=== PATIENT | female | born 1980 | race Caucasian/White ===

== ENCOUNTER → 2022-10-10 10:19 | Outpatient (BNVA) | payer OTHER, SELFPAY | PROVIDERS: PCP Physician Assistant; Visit Provider Student in an Organized Health Care Education/Training Program | DX: Z13.89 Encounter for screening for other disorder (principal) ==

== ENCOUNTER 2022-10-10 11:41 | Outpatient (REF) | payer OTHER, SELFPAY ==
[2022-10-10 12:48] LABS: C Reactive Protein 0.22 mg/dL (< or = 0.50); Rheumatoid Factor < 13.0 IU/mL (<15.0)
[2022-10-10 12:56] LABS: Erythrocyte Sedimentation Rate 30 MM/HR (0-20)
[2022-10-10 13:05] LABS: Appearance Urine Clear; Color Urine Yellow; Glucose Urine UA Negative (Negative); Leukocyte Esterase Urine Negative (Negative); Nitrite Urine Negative (Negative); PH 6.5 (5.0-9.0); Specific Gravity - Urine 1.025 (1.005-1.025); Urine Blood Negative (Negative); Urine Ketones Negative (Negative); Urine Protein Negative (Neg-Trace)
[2022-10-10 13:08] LABS: Bacteria Urine None Seen (None Seen); Hyaline Casts Urine 0-2 /LPF (0-2); RBC Urine 0-2 /HPF (0-2); Squamous Epithelial Cell Urine 0-2 /HPF (0-2); WBC Urine 0-5 /HPF (0-5)
[2022-10-10 13:42] LABS: Creatinine Urine 229.79 mg/dL; Protein/Creatinine Ratio, Ur 0.04 (<0.2); Total Protein Urine Random 10 mg/dL (<12)
[2022-10-11 07:46] LABS: HBS Num1 2.18 mIU/mL (0-7.99); HBc Num1 0.15 S/CO (0.00-0.79); HBsAGNum1 0.25 S/CO (0.00-0.99); Hepatitis A Antibody IgM 0.17 Index (0-0.79); Hepatitis B Core Antibody Nonreactive (Nonreactive); Hepatitis B Surface Antigen Negative (Negative); ~HepC Num1 0.09 S/CO (0.00-0.79); ~Hepatitis A Antibody IgM Nonreactive (Nonreactive); ~Hepatitis B Surface Antibody NONREACTIVE (Nonreactive); ~Hepatitis C Antibody Nonreactive (Nonreactive)
[2022-10-11 17:03] LABS: Complement C3 148 mg/dL (83-193); Thyroglobulin Antibodies <1 IU/mL (< or = 1); Thyroid Peroxidase Antibodies 1 IU/mL (<9)
[2022-10-11 22:33] LABS: Anti DNA DS Antibody 1 IU/mL; Antibody to SS-A Antigen <1.0 NEG AI (<1.0 NEG); Antibody to SS-B Antigen <1.0 NEG AI (<1.0 NEG); SM/Ribonucleoprotein Ab <1.0 NEG AI (<1.0 NEG); Smith Protein <1.0 NEG AI (<1.0 NEG)
[2022-10-11 22:43] LABS: Cardiolipin IgG Ab <2.0 GPL-U/mL
[2022-10-12 21:08] LABS: IgA 248 mg/dL (47-310); IgG 1239 mg/dL (600-1640); IgM 133 mg/dL (50-300)
[2022-10-13 17:24] LABS: Prot Elec - Albumin 4.3 g/dL (3.8-4.8); Prot Elec - Alpha1 0.3 g/dL (0.2-0.3); Prot Elec - Alpha2 0.9 g/dL (0.5-0.9); Prot Elec - Beta 1 0.5 g/dL (0.4-0.6); Prot Elec - Beta 2 0.4 g/dL (0.2-0.5); Prot Elec - Gamma 1.2 g/dL (0.8-1.7); Prot Elec - Total Protein 7.6 g/dL (6.1-8.1)
[2022-10-14 15:05] LABS: DNAds, Crithidia Antibody Negative (Negative)
[2022-10-16 02:10] LABS: PTT (LAC) Screen 32 sec (<=40)
[2022-10-17 14:18] LABS: Beta-2 Glycoprotein IgA <2.0 U/mL (<20.0); Beta-2 Glycoprotein IgG <2.0 U/mL (<20.0); Beta-2 Glycoprotein IgM <2.0 U/mL (<20.0); Cardiolipin IgM Ab <2.0 MPL-U/mL; Cyclic Citrullinated Peptide <16 UNITS
== END 2022-10-10 11:42 | disposition home or self-care (01) ==
LOC: HO.10HDL 11:41
PROVIDERS: Visit Provider Student in an Organized Health Care Education/Training Program
DX: M32.9 Systemic lupus erythematosus, unspecified (principal); D68.61 Antiphospholipid syndrome; M25.541 Pain in joints of right hand; E03.9 Hypothyroidism, unspecified; Z11.59 Encounter for screening for other viral diseases
CPT/HCPCS: 36415; 81001; 82550; 82784; 84156; 84165; 85597; 85613; 85652; 85730; 86140; 86146; 86147; 86160; 86200; 86225; 86235; 86255; 86334; 86376; 86431; 86704; 86706; 86709; 86800; 86803; 87340

== ENCOUNTER → 2022-10-26 13:47 | Outpatient (BNVA) | payer OTHER, SELFPAY | PROVIDERS: PCP Physician Assistant; Visit Provider Student in an Organized Health Care Education/Training Program | DX: Z13.89 Encounter for screening for other disorder (principal) ==

== ENCOUNTER 2023-05-03 15:12 | Outpatient (AMB) | payer OTHER, SELFPAY ==
[2023-05-03 15:20] VITALS: BP 126/72; PULSE 83; TEMP 36.7; O2SAT 97; BMI 41.5
--- NOTE | 2023-05-03 15:20 | A.OFFVIS_ITS ---
Intake Vital Signs 05/03/23 15:20 Height 5 ft 4 in Weight 241 lb 10.026 oz BMI 41.5 BP 126/72 Blood Pressure Location Rt brachial Position Sitting Pulse 83 Pulse Source Pulse Oximeter Temp 98.1 F Temp Source Skin Pulse Oximetry (%) 97 Intake Visit Reasons: RA Allergies acetaminophen [From Percocet] Adverse Reaction (Intermediate, Verified 10/26/22 13:55) Nausea and Vomiting oxycodone [From Percocet] Adverse Reaction (Intermediate, Verified 10/26/22 13:55) Nausea and Vomiting Medication List - Last Reconciled 05/03/23 by Ciro Aguirre MD alprazolam 1 mg PO BID PRN cetirizine (Allergy Relief (cetirizine)) 10 mg PO DAILY PRN hydroxychloroquine 200 mg PO BID omeprazole 20 mg PO DAILY HPI HPI Comments History of Present Illness Details 43-year-old female with mild SLE returns for follow-up. Patient did not start hydroxychloroquine has discussed last visit for fear of side effects. Worried about eye side effects. Patient states that over the last few years she has been getting episodes of fatigue, fevers up to 100.6, rashes on her cheeks as well as pain in her fingers. Initial history: This is a 42-year-old female with a past medical history of anxiety, rosacea who is referred by Dermatology for positive KERA. Patient was evaluated by Dr. Meño hackett for diffuse fatigue and soreness 7-8 years ago. No signs of underlying autoimmune rheumatic disease was found. She had a positive KERA 1-320 homogeneous. Patient stated that for many years she has had fatigue. She gets significantly fatigued after doing some light activity. She has diffuse body pain. Over the last few months she has had recurrent rashes affecting her cheeks, eyelids, fingers. The rash could last a few hours up to a few days. Usually resolve spontaneously. Also over the last 2 years she has noticed progressive hair loss. She also mentions intermittent puffiness of her fingers associated with stiffness. She denies any blood or frothy urine. No history suggestive of Raynaud's. There is no history of DVT/PE. He was evaluated by Dermatology and prescribed show nidus old cream and topical steroids without significant relief. 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 Review of Systems Const Reports fatigue, Reports fever(s), Reports headache(s) and Reports weakness ENT Details: mouth ulcers Reports headache(s) Card Reports no additional complaints Denies hematuria Musc Reports arthralgias Skin/Breast Reports pruritus, Reports erythema, Reports photosensitivity and Reports rash Neuro Reports headache(s) and Reports weakness Endo Reports fatigue Physical Exam Vital Signs: Last Vital Signs Temp 98.1 F 05/03/23 15:20 Pulse 83 05/03/23 15:20 BP 126/72 05/03/23 15:20 Pulse Ox 97 05/03/23 15:20 BMI result Body Mass Index 41.5 Const General: cooperative and healthy appearing Nutritional Appearance: obese morbidly obese Orientation/consciousness: patient oriented x3 Limitations: no limitations HEENT Head: Yes normocephalic and Yes atraumatic Resp Effort & Inspection: normal respiratory effort and able to speak in complete sentences Neuro General: patient oriented x3 Extrem Other: Few fibromyalgia tender points on her upper chest. Tenderness in between her MCPs and PIPs bilaterally No active synovitis otherwise Normal nailfold capillaroscopy Results Reviewed Results Reviewed: Lab:CPK (Order Date - 09/28/2014) (Collection Date - 09/28/2014) ?Result: Normal ?CPK 69 26-140 - U/L Lab:SMOOTH MUSCLE ANTIBODIES (Order Date - 09/28/2014) (Collection Date - 09/28/2014) ?SMOOTH MUSCLE ANTIBODIES <20 <20 - U Lab:CRP (Order Date - 09/28/2014) (Collection Date - 09/28/2014) ?Result: Normal ?CRP < 0.30 < OR = 0.50 - MG/DL Lab:THYROGLOBULIN AB, SERUM (Order Date 09/28/2014) (Collection Date 09/28/2014) ?THYROGLOBULIN AB, SERUM <1 <=1 - IU/mL Lab:SED RATE (ESR) (Order 09/28/2014) (Collection Date 09/28/2014) ?Result: Normal ?SED RATE 13 0-20 - MM/HR Lab:THYROID PEROXIDASE AB (TPO) (Order 09/28/2014) (Collection Date 09/28/2014) ?THYROID PEROXIDASE AB 2 <9 - IU/mL Lab:LYME IGG & IGM (Order 09/28/2014) (Collection Date 09/28/2014) ?LYME IGG & IGM NEGATIVE NEGATIVE - Lab:TRYPTASE (Order 09/28/2014) (Collection Date 09/28/2014) ?TRYPTASE 4 2-10 - ng/mL Lab:C3 COMPLEMENT (Order 09/28/2014) (Collection Date 09/28/2014) ?C3 COMPLEMENT 103 90-180 - mg/dL Lab:CYCLIC CITRULINATED PEPTIDE AB (CCP) (Order 09/28/2014) (Collection Date 09/28/2014) ?CYCLIC CITRULINATED PEPTIDE AB <16 <20 - Units Lab:C4 COMPLEMENT (Order 09/28/2014) (Collection Date 09/28/2014) ?C4 COMPLEMENT 27 16-47 - mg/dL Lab:ANTI-EXTRACTABLE NUCLEAR AG (ANIBAL) (Order 09/28/2014) (Collection Date 09/28/2014) ?WALL PROTEIN <1.0 <1.0 - AI ?SM/RIBONUCLEOPROTEIN AB <1.0 <1.0 - AI Lab:URINALYSIS + MICROSCOPIC (Order 09/28/2014) (Collection Date 09/28/2014) ?Result: trace blood ?COLOR YELLOW - ?APPEARANCE,(UA) CLEAR - ?SPECIFIC GRAVITY 1.015 1.005-1.025 - ?LEUKOCYTES NEG NEG - ?NITRITE NEG NEG - ?PROTEIN,QUALITATIVE NEG NEG - TRACE - ?PH 6.0 5.0-8.0 - ?URINE BLOOD TRACE AA NEG - ?KETONES NEG NEG - MG/DL ?GLUCOSE NEG D NEG - MG/DL ?MICROSCOPIC WBC 0 0-4 - /HPF ?MICROSCOPIC RBC 0-2 0 - /HPF ?EPITHELIAL CELLS 2+ - /LPF ?BACTERIA TRACE - /LPF ?RENAL EPITHELIAL CELLS NONE - /LPF ?CASTS NONE - /LPF ?MUCUS 1+ - ?CRYSTALS AMORPH 1+ - /LPF Lab:DNA,DOUBLE STRANDED AB (CHEHALIS) (Order Date - 09/28/2014) (Collection Date - 09/28/2014) ?DNA DOUBLE STRANDED 1 <=4 - IU/mL Lab:SJOGRENS ANTIBODY (SSA SSB) (Order Date 09/28/2014) (Collection Date - 09/28/2014) ?ANTIBODY TO SS-A ANTIGEN <1.0 <1.0 - AI ?ANTIBODY TO SS-B ANTIBODY <1.0 <1.0 - AI Lab:TSH (THYROID STIMULATING HORMONE) (Order Date - 09/28/2014) (Collection Date - 09/28/2014) ?Result: Normal ?TSH 1.27 0.32-4.0 - MIU/ML Lab:SCLERODERMA AB (Order 09/28/2014) (Collection Date 09/28/2014) ?SCLERODERMA AB <1.0 <1.0 - AI Lab:FLUOR. ANTINUCLEAR AB SCREEN (JOSEPH) (Order Date 09/28/2014) (Collection Date 09/28/2014) ?KERA SCREEN, IFA Positive AA Negative - ?KERA TITER, IFA 1:320 AA Negative - ?KERA PATTERN Homogeneous Labs 09/2022: Show a normal ESR and positive KERA 1-640 dense fine speckled pattern ESR 10/2022: 30 Total vitamin D2,D3 25 Free T4 1.22? TSH 3.21 ferritin 45 Assessment & Plan Assessment & Plan (1) SLE (systemic lupus erythematosus): Code(s): M32.9 - Systemic lupus erythematosus, unspecified Plan: This is a 43-year-old female with a past medical history of anxiety, rosacea presents for evaluation of a positive KERA 1-640 DFS, in 2014 her KERA was 1-320 homogeneous.? For more than 8 years patient has had symptoms of fatigue, generalized body aches. More erecently she has started having intermittent rashes on her face, cheeks, eyelids, neck associated with hair loss, intermittent oral ulcers. On exam she has tenderness in between her MCPs and PIPs. ESR is slightly elevated. Comprehensive screening serology is unremarkable otherwise. CBC unremarkable Lesions were not biopsied as they were not active on her Dermatology appointment.? Symptoms likely consistent with mild SLE (++KERA, rashes, fatigue, hair loss, oral ulcers, tenderness in between MCPs and PIPs) there is no evidence of organ involvement. Discussed risks and benefits of hydroxychloroquine. Patient did not start hydroxychloroquine last visit for fear of side effects. Today patient is agreeable. Start hydroxychloroquine 200 mg Twice daily. Advised patient to take pictures of her skin rashes and to log her fever pattern Follow-up in 3 months, labs before next visit (2) Long-term use of hydroxychloroquine: Code(s): Z79.899 - Other facility specialist (current) drug therapy Plan: Discussed risks of retinopathy. Referred patient to Ophthalmology for baseline eye exam Plan I spent 27 minutes reviewing patient's chart, evaluating patient, ordering diagnostic workup, counseling patient and documenting in the chart Orders: Orders Comprehensive Met. Panel 3 Months M32.9 - Systemic lupus erythematosus, uns pecified C Reactive Protein 3 Months M32.9 - Systemic lupus erythematosus, unspecified Protein Creatinine Ratio, Ur 3 Months M32.9 - Systemic lupus erythematosus, unspecified Complete Blood Count Auto Diff 3 Months M32.9 - Systemic lupus erythematosus, unspecified Erythrocyte Sedimentation Rate 3 Months M32.9 - Systemic lupus erythematosus, unspecified Complement C3 3 Months M32.9 - Systemic lupus erythematosus, unspecified Complement C4 3 Months M32.9 - Systemic lupus erythematosus, unspecified Anti DNA DS Antibody 3 Months M32.9 - Systemic lupus erythematosus, unspecified UA w Microscopic 3 Months M32.9 - Systemic lupus erythematosus, unspecified Coding Level of Care Code Est Pt Level 4 (27040) Diagnoses SLE (systemic lupus erythematosus) M32.9 Long-term use of hydroxychloroquine Z79.899
== END 2023-05-03 16:03 | disposition home or self-care (01) ==
PROVIDERS: PCP Physician Assistant; Visit Provider Student in an Organized Health Care Education/Training Program
DX: M32.9 Systemic lupus erythematosus, unspecified (principal); Z79.899 Other long term (current) drug therapy
CPT/HCPCS: 99214

== ENCOUNTER → 2023-05-03 15:12 | Outpatient (BNVA) | payer OTHER, SELFPAY | PROVIDERS: PCP Physician Assistant; Visit Provider Student in an Organized Health Care Education/Training Program ==

== ENCOUNTER 2025-08-17 13:55 | Outpatient (AMB) | payer OTHER, SELFPAY ==
--- OUTSIDE RECORDS SUMMARY | 2025-08-13 23:59 | XMS_ITS | Continuity of Care Document ---
Author Organization [facility] Address [address], [address] [place] [address]- Care Team Providers Care Sales Route Driver Name Role Phone Laura LERMA, Gustabo P Primary Care Physician Encounter [facility] [place] Date(s): 07/14/25 - 08/13/25 [facility] [address] [place] [address], [address] [place], [place] [address] Attending Physician: Masood Garcia Admitting Physician: Masood Garcia Referring Physician: trMasood Encounter Type: Triage Allergies, Adverse Reactions, Alerts Substance Criticality Severity Reaction Reaction Severity Status Contrast Dye 1 Activ e Percocet 5/325 opiate meds c ause nausea Active 1IV dye, anaphylaxis Immunizations Given and Recorded Vaccine Date Status Refusal Reason influenza virus vaccine, inactivated 06/28/23 Johan rded influenza virus vaccine, inactivated 07/09/18 Johan rded influenza virus vaccine, inactivated 07/31/17 Johan rded influenza virus vaccine, inactivated 07/30/17 Give n influenza virus vaccine, inactivated 1 06/02/15 Gi heena influenza virus vaccine, inactivated 09/14/14 Johan rded influenza virus vaccine, inactivated 08/03/14 Give n Measles/Mumps/Rubella Virus Vaccine 2 08/23/20 Giv en Measles/Mumps/Rubella Virus Vaccine 3 07/09/20 Giv en hepatitis B adult vaccine 4 08/23/20 Given hepatitis B adult vaccine 5 07/09/20 Given FluLaval (oldterm) 09/16/12 Given Tet/Diphth/Acel, Pertussis (oldterm) 04/30/12 Give n 1Result Comment: [06/08/2015] Marcel 2Result Comment: [facility] [id number] 3Result Comment: [facility] [id number] 4Result Comment: [facility] [id number] 5Result Comment: [facility] [id number]./PAL Medications ALPRAZolam 1 mg oral tablet 1 tablet = 1 mg, By Mouth, 2 times a day, PRN as needed for anxiety, # 60 tablet, 0 Refills, Maintenance, 07/22/25 10:49:00 PM EST, Tablet, [id number], this is for february fill - please use script on file first, 163, cm, 07/22/25 11:43:00 EST, Height, 119.6, kg, 07/14/25 11:20:00 EST, Dry Weight Start Date: 07/22/25 Status: Ordered Medication Dispense Status: Completed Quantity: 60.0 Unit: tablet Total Allowed Fills: 1 Fills Dispensed: 0 CPAP Machine See Instructions, # 1 each, Maintenance, AutoCPAP 8-20 cm H2O with compliance data followed G47.,05/26/20 1:06:00 PM EDT, Supply Start Date: 05/26/20 Status: Ordered Medication Dispense Status: Completed Quantity: 1.0 Unit: each Total Allowed Fills: 1 Fills Dispensed: 0 CPAP Equipment See Instructions, # 1 each, Maintenance, mask, filters, head gear, ftubing, chin strap, water chamber, heated humidifier G47.33, 05/28/20 3:46:00 PM EDT, Supply Start Date: 05/28/20 Status: Ordered Medication Dispense Status: Completed Quantity: 1.0 Unit: each Total Allowed Fills: 1 Fills Dispensed: 0 omeprazole 20 mg oral enteric coated capsule 1 capsule = 20 mg, By Mouth, Daily, # 90 capsule, 3 Refills, Maintenance, 02/05/25 1:26:00 PM EDT, ECCapsule, [id number], Partial fill upon patient request if the prescription is for a schedule II opioid drug., 163, cm, 01/23/25 8:21:00 EDT, Height Start Date: 02/05/25 Stop Date: 06/05/25 Status: Ordered Medication Dispense Status: Completed Quantity: 90.0 Unit: capsule Total Allowed Fills: 4 Fills Dispensed: 0 Problem List Condition Confirmation Course Effective Dates Status H ealth Status Informant Anal fissure Confirmed Active Anal pain Confirmed Active Post-traumatic stress disorder, chronic Confirmed Active Elevated antinuclear antibody (KERA) level Confirmed Active Epiploic appendagitis Confirmed Active Social phobia, generalized Confirmed Active Lightheadedness Confirmed Active Lupus Confirmed Active Malaise and fatigue Confirmed Active Migraine Confirmed 07/22/12 Active Panic disorder with agoraphobia and severe panic attacks Confirmed Active Severe obesity Confirmed Active Shortness of Breath Confirmed 05/24/12 Active Social History Social History Type Response Sexual Sexually involved in last 6 months: Yes. Smoking Status Former smoker, quit more than 30 days ago; Interested in cessation: No; Patient wants NRT during admission No;Never; Type: Cigarettes; Previous treatment: None; Started at age: 16; Stopped at age: 22; entered on: 08/22/22 Sex Sex Representation Female (finding) Patient Care team information Care Team Personnel Name: Va Davila [place] Position: [facility] Office Staff Member Role: Primary Care Nurse Name: Gustabo Atwood Position: [facility] Associate Professional Member Role: PCP Address: [address] [place] [id number] Telecom: Care Team Related Persons Name: JIM BAINS Name: SERA MENDEZ Name: ZHENG MENDEZ Name: ELLIOTT SINGH Insurance Providers Guarantor name: RAI BAINS Health Plan Information #: 1 Payer: [id number] Payer Identifier: NA Member Number: [id number] Group Number: [id number] Subscriber Identifier: NA Relationship to Subscriber: self Coverage Type: PRIVATE [employer] INSURANCE Coverage Verification Date: NA Telecom: Address:
--- NOTE | 2025-08-17 14:06 | A.OFFVIS_ITS ---
Vital Signs 3 08/17/25 14:15 Height 5 ft 4 in Weight 247 lb BMI 42.4 BP 124/65 Blood Pressure Location Lt brachial Position Sitting Pulse 67 Intake Visit Reasons: umbilical hernia Intake Note: Patient is seen in office for evaluation of an umbilical hernia. Pt c/o: onset one month, had severe stomach pain, went to see PCP and had a CT scan done, per prior CT scan hernia was present since 2019, minimal increase since, IBS, constipation/diarrhea on and off CT: 07/24/25 Auto Top Mechanic Required: No Accompanied by: Family/Other Allergies acetaminophen (From Percocet) Adverse Reaction (Intermediate, Verified 08/17/25 14:13) Nausea and Vomiting oxycodone (From Percocet) Adverse Reaction (Intermediate, Verified 08/17/25 14:13) Nausea and Vomiting HPI Comments Details: The patient is a 45 year old female presenting for evaluation of a symptomatic umbilical hernia. She experienced significant pain about a month ago which led her to an urgent care visit, though the pain has since subsided. She currently notices the hernia when bending down and observes a bulge, but is not in pain today. The hernia was incidentally noted on scans in 2018 and 2022, and has reportedly increased in size from 10 x 9 mm to 3 cm since the 2022 scan. She describes the hernia as feeling harder while moving around during the day and has tried icing it. The patient's past medical history is significant for irritable bowel syndrome (IBS) for years, characterized by alternating constipation for 4-5 days and loose stools. She also has severe obstructive sleep apnea, for which she uses a CPAP machine regularly, a mild case of lupus, and Mcdonnell's esophagus managed with omeprazole. She has no history of diabetes or bleeding problems, and antiphospholipid syndrome has been ruled out. The patient has never had any prior surgery. She reports being morbidly obese but has recently lost almost 20 pounds. She has significant anxiety regarding the proposed surgery and potential complications related to anesthesia, her weight, and sleep apnea. She was diagnosed with a urinary tract infection today and prescribed Macrobid. 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 Review of Systems Const All systems reviewed & are unremarkable except as noted in HPI and below Denies chills, Denies fever(s), Denies headache(s), Denies poor appetite and Denies weakness ENT Denies headache(s) Card Denies chest pain, Denies irregular heart rhythm, Denies palpitations and Denies dyspnea Resp Denies cough, Denies excessive phlegm production and Denies dyspnea GI Denies abdominal pain, Denies bloating, Denies change in bowel habits, Denies constipation, Denies heartburn, Denies diarrhea, Denies nausea and Denies vomiting Denies urinary frequency Musc Denies back pain, Denies muscle weakness and Denies numbness Skin/Breast Denies changing lesions and Denies unusual bruising Neuro Denies headache(s), Denies numbness, Denies paresthesias and Denies weakness Psych Reports anxiety and Denies depression Endo Denies palpitations Salazar/Lymph Denies lymphadenopathy Physical Exam Const General: cooperative and no acute distress Nutritional Appearance: well nourished Orientation/consciousness: patient oriented x3 Limitations: no limitations HEENT Head: Yes normocephalic and Yes atraumatic Ears: hearing grossly normal bilaterally Resp Effort & Inspection: normal respiratory effort, no audible wheezes, no cough and no respiratory distress Cardio Jugular venous distension: no JVD GI Other: 1.5 cm umbilical hernia noted in the standing position which increases with Valsalva maneuvers and reduces with light pressure. There was minimal tenderness to palpation. No overlying skin changes are appreciated. Inspection: Yes normal to inspection Abdomen image: 2 1. Site of umbilical hernia Skin Other: Warm, dry, no rash Neuro General: patient oriented x3 Extrem General: Yes no clubbing, cyanosis or edema Assessment & Plan Assessment & Plan (1) Umbilical hernia: Code(s): K42.9 - Umbilical hernia without obstruction or gangrene Category: Medical Qualifiers: Obstruction and gangrene presence: without obstruction or gangrene Q ualified Code(s): K42.9 - Umbilical hernia without obstruction or gangrene Plan 45-year-old female patient presenting with a symptomatic umbilical hernia which has been present for several years and now causing increased discomfort. On examination she does have a small umbilical hernia which is tender to palpation. The hernia is reducible with light pressure. I recommended repair of this umbilical hernia with mesh and after discussion of the procedure, risks, and alternatives, she consents to the surgery. She is concerned about her sleep apnea and postoperative nausea. This will be discussed further with anesthesia at the time of surgery. Coding Level of Care Code New Pt Level 4 (68947) Diagnoses Umbilical hernia without obstruction and without gangrene K42.9 Obstruction and gangrene presence: without obstruction or gangrene
[2025-08-17 14:15] VITALS: BP 124/65; PULSE 67; BMI 42.4
--- OUTSIDE RECORDS SUMMARY | 2025-08-17 20:15 | XMS_ITS | Clinical Summary ---
Author Organization [facility] Address [address] [place] [address] Phone Care Team Providers Care Inshore Undersea Warfare Officer Name Role Phone Gustabo Sanchez Primary Care Provider [phone] Allergies Active Allergy Reactions Criticality Noted Date Comments Oxycodone-Acetaminophen Nausea And Vomiting Medium 09/2017 Medications topiramate (TOPAMAX) 50 mg tablet Take 1 Tablet by mouth 2 times daily. Active menthol-zinc oxide (Calmoseptine) 0.44-20.6 % ointment Apply 1 Applicatorful topically 2 times daily as needed for Other (rectal irritation). 3 Active ALPRAZolam (NIRAVAM) 1 mg dispersible tablet Take 1 Tablet by mouth at bedtime as needed. Active BIOTIN ORAL Take by mouth. Act emilie UNABLE TO FIND Inhale into the lungs. Active Medical History Medical History Date Comments IBS (irritable bowel syndrome) D X:IBS (irritable bowel syndrome) Rectal pain DX:Rectal pain Rectal pressure DX:Rectal pressu re Rectal bleeding DX:Rectal bleedi ng Pelvic pain DX:Pelvic pain Anxiety disorder DX:Anxiety diso rder KENDRA (obstructive sleep apnea) DX :KENDRA (obstructive sleep apnea) Social History Tobacco Use Types Packs/Day Years Used Date Smoking Tobacco: Former Smokeless Tobacco: Never Alcohol Use Standard Drinks/Week Comments No 0 (1 standard drink = 0.6 oz pur e alcohol) Comments Unknown Sex and Gender Information Value Date Recorded Sex Assigned at Not on file Legal Sex Female 12:56 PM EST Gender Identity Not on file Sexual Orientation Not on file Last Filed Vital Signs Vital Sign Reading Time Taken Comments Blood Pressure 102/66 10/13/2022 8:47 AM EST Pulse 88 10/25/2022 10:40 AM EST Temperature - - Respiratory Rate - - Oxygen Saturation - - Inhaled Oxygen Concentration - - Weight 111 kg (245 lb) 10/25/2022 10:40 AM EST Height 162.6 cm (5' 4 ) 10/25/2022 10:40 AM EST Body Mass Index 42.05 10/25/2022 10:40 AM EST Plan of Treatment Upcoming Encounters Date Type Department Care Team (Late st Contact Info) Description 10/28/2025 2:30 PM EST Office Visit Obstetrics and Gynecology [address] [phone] [place], [facility] [address] [place] [address] Health Maintenance Due Date Last Done Comments Breast Cancer Screening 1982 DTaP,Tdap,and Td Vaccines (1 - Tdap) 2001 Hepatitis B Vaccines (1 of 3 - 19+ 3-dose series) 2001 HPV Vaccines (1 - 3-dose SCD M series) 2009 HIV Screening 12/17/2022 Hepatitis C Screening 12/17/2022 Social Influencers of Health Screening 12/17/2022 Depression Screening 09/03/2024 COVID-19 Vaccine (1 - 2024-2 6 season) 2025 Influenza Vaccine (#1) 2025 Cervical Cancer Screening: HPV 10/25/2027 10/25/2022 RSV Immunization Adult Patie nts (1 - 1-dose 75+ series) 2057 HIB Vaccines Aged Out No longer eligi ble based on patient's age to complete this topic Hepatitis A Vaccines Aged Out No long er eligible based on patient's age to complete this topic IPV Vaccines Aged Out No longer eligi ble based on patient's age to complete this topic MMR Vaccines Aged Out No longer eligi ble based on patient's age to complete this topic Meningococcal ACWY Vaccine Aged Out N o longer eligible based on patient's age to complete this topic Meningococcal B Vaccine Aged Out No l onger eligible based on patient's age to complete this topic Pneumococcal Vaccine: Pediat rics (0 to 5 Years) and At-Risk Patients (6 to 49 Years) Aged Out No longer eligi ble based on patient's age to complete this topic RSV Immunization Patients Un sudarshan 20 months Aged Out No longer eligible b ased on patient's age to complete this topic Varicella Vaccines Aged Out No longer eligible based on patient's age to complete this topic Procedures Procedure Name Priority Date/Time Associated Diagnosis Comments HPV Routine 10/25/2022 from Last 3 Months or Most Recently Relevant to Health Maintenance Results * Cervical Cancer Screening: HPV (10/25/2022) Cervical Cancer Screening: HPV negative abstracted Historical Provider MD HEALTH MAINTENANCE Final Result from Last 3 Months or Most Recently Relevant to Health Maintenance Insurance [facility] [place] LOPEZ [id number] Care Teams Inshore Undersea Warfare Officer Relationship Specialty Start Date End Date Gustabo Sanchez PA PCP - General 06/27/22
--- OUTSIDE RECORDS SUMMARY | 2025-08-17 20:15 | XMS_ITS | Encounter Summary ---
Author Organization [facility] Address [address] [place] [address] Phone Care Team Providers Care Bank Messenger Name Role Phone Gustabo Sanchez Primary Care Provider [phone] Encounter Details Date Type Department Care Team (Latest Contact Info) Description 12/05/2022 Transcribe Orders Virtual Department [address] [place] [address] Obdulia Mehta PA-C [address], [address] [place] [address] [email or web address] Elevated LFTs (Primary Dx) Social History Tobacco Use Types Packs/Day Years Used Date Smoking Tobacco: Former Cigarettes Q uit: 2000 Smokeless Tobacco: Never Alcohol Use Standard Drinks/Week Comments Never 0 (1 standard drink = 0.6 oz pur e alcohol) Intimate Partner Violence Answer Date R ecorded Are you denied basic needs s uch as food, clothing, or medical care? No 12/01/2022 In the past 12 months have y ou been in a relationship with a person who hurts, threatens, or tries to control you? No 12/01/2022 Are you denied basic needs s uch as food, clothing, or medical care? No 12/01/2022 In the past 12 months have y ou been in a relationship with a person who hurts, threatens, or tries to control you? No 12/01/2022 Comments No Sex and Gender Information Value Date Recorded Sex Assigned at Not on file Legal Sex Female 7:06 PM EST Gender Identity Not on file Sexual Orientation Not on file documented as of this encounter Plan of Treatment Upcoming Encounters Date Type Department Care Team (Latest Contact Info) Description 11/27/2025 Procedure Pass [facility] Endoscopy Admitting Dept Virtual Department [address] [place] [phone] 11/27/2025 9:00 AM EDT Hospital Encounter [facility] Endoscopy Admitting Dept Virtual Department [address] [place] [address] Les Garcia MD [address] [address] juan [email or web address] 11/27/2025 9:00 AM EDT - 11/27/2025 9:30 AM EDT Surgery [facility] Endoscopy Admitting Dept Virtual Department [address] [place] [address] Les Garcia MD [address] [place] [address] juan [email or web address] ESOPHAGOGASTRODUODENOSCOPY Scheduled Procedures Name Priority Associated Diagnoses Date/Ti al ESOPHAGOGASTRODUODENOSCOPY Mcdonnell's esophagus without dysplasia 11/27/2025 9:00 AM EDT documented as of this encounter Results * US ABDOMEN LIMITED RIGHT UPPER QUADRANT (12/19/2022 11:30 AM EDT) Anatomical Region Laterality Modality Abdomen Ultrasound 12/19/2022 12:1 3 PM EDT Impressions 12/19/2022 4:46 PM EDT 1. Minimally increased echogenicity of the hepatic parenchyma in which may be seen in the setting of hepatic steatosis. Narrative 12/19/2022 4:46 PM EDT US ABDOMEN LIMITED RIGHT UPPER QUADRANT TECHNIQUE: US Abdominal limited right upper quadrant. COMPARISON: There is no prior study available for comparison FINDINGS: Liver: There is minimally increased echogenicity of the hepatic parenchyma in which may be seen in the setting of hepatic steatosis. No focal hepatic lesions demonstrated sonographically. Main Portal Vein: Patent with normal direction of flow. Gallbladder: No gallstones or gallbladder wall thickening. Guzman's Sign: Negative. Biliary: No intrahepatic or extrahepatic biliary ductal dilatation. The common bile duct measures 4 mm. Right Kidney: No stones or hydronephrosis. Procedure Note Mary [place] MD - 12/19/2022 US ABDOMEN LIMITED RIGHT UPPER QUADRANT TECHNIQUE: US Abdominal limited right upper quadrant. COMPARISON: There is no prior study available for comparison FINDINGS: Liver: There is minimally increased echogenicity of the hepatic parenchymain which may be seen in the setting of hepatic steatosis. No focal hepaticlesions demonstrated sonographically. Main Portal Vein: Patent with normal direction of flow. Gallbladder: No gallstones or gallbladder wall thickening. Guzman's Sign: Negative. Biliary: No intrahepatic or extrahepatic biliary ductal dilatation. The common bile duct measures 4 mm. Right Kidney: No stones or hydronephrosis. IMPRESSION: 1. Minimally increased echogenicity of the hepatic parenchyma in whichmay be seen in the setting of hepatic steatosis. 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 It is not the complete legal health record.[facility]
--- OUTSIDE RECORDS SUMMARY | 2025-08-17 20:15 | XMS_ITS | Encounter Summary ---
Author Organization [facility] Address [address] [place] [phone] Phone Care Team Providers Care Siebel Crm Developer Name Role Phone Pcp, Unknown Primary Care Provider Gustabo Martin Primary Care Provider Encounter Details Date Type Department Care Team (Late st Contact Info) Description 08/14/2019 Telephone [facility] [address] [place] [address] Jonny Miramontes MD [address] [place] [address] Social History Tobacco Use Types Packs/Day Years Used Date Smoking Tobacco: Never Assessed Comments Unknown Sex and Gender Information Value Date Recorded Sex Assigned at Not on file Legal Sex Female 7:06 PM EST Gender Identity Not on file Sexual Orientation Not on file documented as of this encounter Plan of Treatment Upcoming Encounters Date Type Department Care Team (Latest Contact Info) Description 11/27/2025 Procedure Pass [facility] Endoscopy Admitting Dept Virtual Department [address] [place] [address] 11/27/2025 9:00 AM EDT Hospital Encounter [facility] Endoscopy Admitting Dept Virtual Department [address] [place] [address] Les Garcia MD [address] [address] juan [email or web address] 11/27/2025 9:00 AM EDT - 11/27/2025 9:30 AM EDT Surgery [facility] Endoscopy Admitting Dept Virtual Department [address] [place] [address] Les Garcia MD [address] [place] [address] juan [email or web address] ESOPHAGOGASTRODUODENOSCOPY Scheduled Procedures Name Priority Associated Diagnoses Date/Ti co ESOPHAGOGASTRODUODENOSCOPY 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 It is not the complete legal health record.[facility]
--- OUTSIDE RECORDS SUMMARY | 2025-08-17 20:15 | XMS_ITS | Encounter Summary ---
Author Organization [facility] Address [address] [place] [address] Phone Care Team Providers Care Entertainer Or Variety Artist Name Role Phone Gustabo Sanchez Primary Care Provider + [phone] Encounter Details Date Type Department Care Team (Late st Contact Info) Description 12/01/2022 Procedure Pass [facility] Endoscopy Admitting Dept Virtual Department [address] [place] [address] Social History Tobacco Use Types Packs/Day Years Used Date Smoking Tobacco: Former Cigarettes Q uit: 1999 Smokeless Tobacco: Never Alcohol Use Standard Drinks/Week [...] [facility]oscopy Admitting Dept Virtual Department [address] [place] [address] 11/27/2025 9:00 AM EDT Hospital Encounter [facility] Endoscopy Admitting Dept Virtual Department [address] [place] [address] Les Garcia MD [address] [address] juan [email or web address] 11/27/2025 9:00 AM EDT - 11/27/2025 9:30 AM EDT Surgery [facility] Endoscopy Admitting Dept Virtual Department [address] [place] [address] Les Garcia MD [address] [address] juan [email or web address] ESOPHAGOGASTRODUODENOSCOPY Scheduled Procedures Name Priority Associated Diagnoses Date/Ti ga ESOPHAGOGASTRODUODENOSCOPY 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 It is not the complete legal health record.[facility]
--- OUTSIDE RECORDS SUMMARY | 2025-08-17 20:15 | XMS_ITS | Clinical Summary ---
Author Organization [facility] Address [address] [place] [address] Phone Care Team Providers Care Exercise Instructor Name Role Phone Gustabo Sanchez Primary Care Provider [phone] Allergies Active Allergy Reactions Criticality Noted Date Comments Iodinated Contrast Media Bronchospasm 3 Oxycodone-Acetaminophen GI Upset,Nausea And Vomiting Mediu m 02/01/2018 Medications ALPRAZolam (XANAX) 1 MG tabletIndicatio ns:Myalgia of pelvic floor Take 1 mg by mouth nightly at bedtime as needed for sleep. Active ibuprofen (ADVIL,MOTRIN) 600 MG tabletIndicatio ns:Myalgia of pelvic floor Take 600 mg by mouth every 6 (six) hours as needed for pain (specific location in comments). Active multivitamin-mi nerals-lutein (CENTRUM SILVER) Tab Take 1 tablet by mouth daily. Active omeprazole (PRILOSEC) 20 mg TbEC Take 40 mg by mouth. 12/06/2023 Active hydroxychloroqu ine (PLAQUENIL) 200 mg tablet Take 200 mg by mouth 2 (two) times a day. Active DULoxetine (CYMBALTA) 30 MG capsule Take 30 mg by mouth. 08/16/2023 Active nabumetone (RELAFEN) 500 MG tablet Take 500 mg by mouth daily. 10/18/2023 Active Active Problems Problem Noted Date Diagnosed Date Systemic lupus erythematosus 12/25/2023 Assessment & Plan (03/26/2024 2:34 PM EDT): Systemic lupus on Plaquenil 1 tablet daily. She is overdue for eye exam. She continues to have vague symptoms of flushing fatigue and joint pain, which could also be from a flushing reaction. I have asked her to come see me sometime in early May once she is able to ambulate and her fractured right foot has completely healed. We can then do some labs to compare them to her lupus labs from December. In the meantime continue with hydroxychloroquine and nabumetone. Assessment & Plan (12/25/2023 11:07 AM EDT): Patient carries a diagnosis of systemic lupus since spring 2022. She has had a malar rash joint swelling and pain fatigue and increased hair loss. She is currently on Plaquenil and is overdue for an eye exam. Advised her to get a baseline eye exam as soon as possible. She is also advised to avoid prolonged sun exposure and to wear sunblock with an SPF of at least 35. Sent her for some baseline labs to establish her autoantibody profile. If her lupus activity labs are abnormal we can consider adding azathioprine to her regimen. 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) from Last 3 Months Family History Medical History Relation Comments No Known Problems Brother No Known Problems Daughter Atrial fibrillation Maternal Grandfather Hypertension Maternal Grandfather Cancer Maternal Grandmother Thyroid disease Maternal Grandmother Hypertension Mother No Known Problems Son Relation Status Comments Brother Alive Daughter Father Alive Maternal Grandfather Maternal Grandmother Mother Alive Son Social History Tobacco Use Types Packs/Day Years Used Date Smoking Tobacco: Former Cigarettes Q uit: 1999 Smokeless Tobacco: Never Tobacco Cessation:Counseling Given: Not Answered Alcohol Use Standard Drinks/Week Comments Never 0 (1 standard drink = 0.6 oz pur e alcohol) Education Answer Date Recorded Are you interested in more education? Not on chang e 12/28/2022 Are you concerned about learning? Not on file 12/28/2022 No 12/28/2022 No 12/28/2022 Digital Access Answer Date Recorded No 01/29/2023 No 01/29/2023 Reliable internet access at home? Not on file 01/29/2023 Device with a working camera? Not on file Intimate Partner Violence Answer Date R ecorded [...] Sign Reading Time Taken Comments Blood Pressure 109/69 07/28/2025 9:59 AM EST Pulse 75 07/28/2025 9:59 AM EST Temperature 36.1 C (97 F) 12/01/2022 1:52 PM EDT Respiratory Rate 19 12/01/2022 2:09 PM EDT Oxygen Saturation 98% 07/28/2025 9:59 AM EST Inhaled Oxygen Concentration - - Weight 116.1 kg (256 lb) 07/28/2025 9:59 AM EST Height 162.6 cm (5' 4 ) 07/28/2025 9:59 AM EST Body Mass Index 43.94 07/28/2025 9:59 AM EST Plan of Treatment Upcoming Encounters Date Type Department Care Team (Latest Contact Info) Description 11/27/2025 Procedure Pass [facility] Admitting Dept Virtual Department [address] [place] [address] 11/27/2025 9:00 AM EDT Hospital Encounter [facility] Admitting [facility] Virtual Department [address] [place] [address] Les Wilson MD [address] [place] [address] juan [email or web address] 11/27/2025 9:00 AM EDT - 11/27/2025 9:30 AM EDT Surgery [facility] Admitting Dept Virtual Department [address] [place] [address] Les Wilson MD [address] [place] [address] juan [email or web address] ESOPHAGOGASTRODUODENOSCOPY Scheduled Procedures Name Priority Associated Diagnoses Date/Ti me ESOPHAGOGASTRODUODENOSCOPY Mcdonnell's esophagus without dysplasia 11/27/2025 9:00 AM EDT Health Maintenance Due Date Last Done Comments Adult Td,Tdap Booster 1980 DEPRESSION SCREENING 1994 HEPATITIS C SCREENING 02/29/2000 HIV ONE-TIME SCREENING (18-65 YEARS) 02/29/2000 PAP SMEAR 2003 MAMMOGRAM 2022 INFLUENZA VACCINE (#1) 2025 8, 07/31/2017, 07/30/2017, Additional history exists COVID-19 VACCINE ( season) 2025 COLOGUARD 07/28/2025 FIT TEST 07/28/2025 FOBT 07/28/2025 SIGMOIDOSCOPY 07/28/2025 VIRTUAL COLONOSCOPY 07/28/2025 SMOKING Hx and SMOKELESS TOBACCO SCREENING 07/28/2026 07/28/2025 SCREENING FOR DIABETES 07/28/2028 07/28/2025 COLONOSCOPY 12/01/2032 12/01/2022 COLORECTAL CANCER SCREENING 12/01/2032 HEPATITIS A VACCINES Aged Out No long er eligible based on patient's age to complete this topic HIB VACCINES Aged Out No longer eligi ble based on patient's age to complete this topic MENINGOCOCCAL VACCINES (ACWY) Aged Out No longer eligible based on patient's age to complete this topic MENINGOCOCCAL VACCINES (B) Aged Out N o longer eligible based on patient's age to complete this topic PNEUMOCOCCAL VACCINES (0-49 years) Aged Out No longer eligible based on patient's age to complete this topic Medical Devices Not on file Procedures Procedure Name Priority Date/Time Associated Diagnosis Comments TISSUE TRANSGLUTAMINASE IGA Routine 07/28/2025 10:37 AM EST Mcdonnell's esophagus without dysplasia CBC AND DIFFERENTIAL Routine 07/28/2025 10:37 AM EST Mcdonnell's esophagus without dysplasia CBC AND DIFFERENTIAL Routine 07/28/2025 10:37 AM EST Mcdonnell's esophagus without dysplasia VITAMIN B12 Routine 07/28/2025 10:37 AM EST Mcdonnell's esophagus without dysplasia IRON AND IRON BINDING CAPACITY Routine 07/28/2025 10:37 AM EST Mcdonnell's esophagus without dysplasia FERRITIN Routine 07/28/2025 10:37 AM EST Mcdonnell's esophagus without dysplasia CELIAC DISEASE PANEL Routine 07/28/2025 10:37 AM EST Mcdonnell's esophagus without dysplasia COMPREHENSIVE METABOLIC PANEL (CMP) Routine 07/28/2025 10:37 AM EST Mcdonnell's esophagus without dysplasia LIPASE Routine 07/28/2025 10:37 AM EST Mcdonnell's esophagus without dysplasia ENDOSCOPY, COLON 12/01/2022 1:19 PM EDT from Last 3 Months or Most Recently Relevant to Health Maintenance Results * (ABNORMAL) Comprehensive Metabolic Panel (CMP) (07/28/2025 10:37 AM EST) Sodium 136 136 - 145 mmol/L 07/28/2025 4:54 PM [facility] Potassium 4.3 3.4 - 5.1 mmol/L 07/28/2025 4:54 PM [facility] Chloride 101 98 - 107 mmol/L 07/28/2025 4:54 PM [facility] CO2 24 20 - 31 mmol/L 07/28/2025 4:54 PM [facility] Anion Gap 11 3 - 17 mmol/L 07/28/2025 4:54 PM [facility] BUN 13 6 - 23 mg/dL 07/28/2025 4:54 PM [facility] Creatinine 0.80 0.50 - 1.00 mg/dL 07/28/2025 4:54 PM [facility] eGFR 94 >59 mL/min/1.7 3m2 07/28/2025 4:54 PM [facility] Comment:Estimated glomerular filtration rate calculated using the CKD-EPI refit equation. Glucose 97 70 - 99 mg/dL 07/28/2025 4:54 PM [facility] Calcium 9.5 8.5 - 10.5 mg/dL 07/28/2025 4:54 PM [facility] AST 36(H) <33 U/L 07/28/2025 4:54 PM [facility] ALT 43(H) <34 U/L 07/28/2025 4:54 PM [facility] Alkaline Phosphatase 89 40 - 130 U/L 07/28/2025 4:54 PM [facility] Bilirubin, Total 0.4 0.0 - 1.2 mg/dL 07/28/2025 4:54 PM [facility] Total Protein 7.4 6.4 - 8.3 g/dL 07/28/2025 4:54 PM [facility] Albumin 4.4 3.5 - 5.2 g/dL 07/28/2025 4:54 PM [facility] Globulin 3.0 1.9 - 4.1 g/dL 07/28/2025 4:54 PM [facility] Blood (Blood) Venipuncture / Unknown 07/28/2025 10:37 AM EST 07/28/2025 10:37 AM EST us Les Wilson MD LAB BLOOD BKR ORDERABLES Fin al Result [facility] [address] [place] [address] * (ABNORMAL) CBC and Differential (07/28/2025 10:37 AM EST) WBC 4.47 4.00 - 11.00 K/uL 07/28/2025 3:32 PM [facility] RBC 4.51 4.00 - 5.20 M/uL 07/28/2025 3:32 PM [facility] Hemoglobin 11.7(L) 12.0 - 16.0 g/dL 07/28/2025 3:32 PM [facility] Hematocrit 37.1 36.0 - 46.0 % 07/28/2025 3:32 PM [facility] MCV 82.3 80.0 - 100.0 fL 07/28/2025 3:32 PM [facility] MCH 25.9(L) 27.0 - 31.0 pg 07/28/2025 3:32 PM [facility] MCHC 31.5(L) 32.0 - 36.0 g/dL 07/28/2025 3:32 PM [facility] MPV 9.8 8.4 - 12.0 fL 07/28/2025 3:32 PM [facility] RDW-CV 14.6(H) 11.5 - 14.5 % 07/28/2025 3:32 PM [facility] PLT 358 150 - 450 K/uL 07/28/2025 3:32 PM [facility] Neutrophils 53.4 % 07/28/2025 3:32 PM [facility] Lymphocytes 33.3 % 07/28/2025 3:32 PM [facility] Monocytes 10.7 % 07/28/2025 3:32 PM [facility] Eosinophils 1.3 % 07/28/2025 3:32 PM [facility] Basophils 1.1 % 07/28/2025 3:32 PM [facility] Imm Grans 0.2 % 07/28/2025 3:32 PM [facility] NRBC 0.0 <=0.0 /100 WBCs 07/28/2025 3:32 PM [facility] Absolute Neutrophils 2.38 1.92 - 7.60 K/uL 07/28/2025 3:32 PM [facility] Absolute Lymphocytes 1.49 0.72 - 4.10 K/uL 07/28/2025 3:32 PM [facility] Absolute Monocytes 0.48 0.16 - 1.10 K/uL 07/28/2025 3:32 PM [facility] Absolute Eosinophils 0.06 0.00 - 0.50 K/uL 07/28/2025 3:32 PM [facility] Absolute Basophils 0.05 0.00 - 0.15 K/uL 07/28/2025 3:32 PM [facility] Absolute Imm Grans 0.01 0.00 - 0.09 K/uL 07/28/2025 3:32 PM [facility] Absolute NRBC 0.00 <=0.00 K cells/uL 07/28/2025 3:32 PM [facility] Absolute Neutrophils 2.38 1.92 - 7.60 K/uL 07/28/2025 3:32 PM [facility] Comment:Automated cell count . Manual ANC may differ if performed. Diff Type Auto 07/28/2025 3:32 PM [facility] Blood (Blood) Venipuncture / Unknown 07/28/2025 10:37 AM EST 07/28/2025 10:37 AM EST us Les Wilson MD LAB BLOOD BKR ORDERABLES Fin al Result [address] [id number] * Celiac Disease Panel (07/28/2025 10:37 AM EST) Immunoglobulin A (IgA), S 226 61 - 356 mg/dL 08/03/2025 10:41 PM EST [facility] Celiac Disease Interpretation SEE COMMENTS 08/03/2025 10:41 PM EST [facility] Comment: See Comment: Negative serology. Celiac disease unlikely. However, approximately 10% of patients with celiac disease are seronegative. Also, patients who are already adhering to a gluten-free diet may be seronegative. If celiac disease is highly clinically suspected, consider HLA-DQ typing. Blood (Blood) Venipuncture / Unknown 07/28/2025 10:37 AM EST 07/28/2025 10:37 AM EST us Les Wilson MD LAB BLOOD BKR ORDERABLES Fin al Result RODRÍGUEZ (BEAKER) [facility] [address] [place] [address], [facility] [phone] * (ABNORMAL) Iron and Total Iron Binding Capacity (Iron/TIBC) (07/28/2025 10:37 AM EST) Pathologist [facility] Iron 45 28 - 170 ug/dL 07/28/2025 4:54 PM EST [facility] Total Iron-Binding Capacity (TIBC) 367 220 - 460 ug/dL 07/28/2025 4:54 PM [facility] Transferrin Saturation 12(L) 14 - 50 % 07/28/2025 4:54 PM [facility] Blood (Blood) Venipuncture / Unknown 07/28/2025 10:37 AM EST 07/28/2025 10:37 AM EST Les Wilson MD LAB BLOOD BKR [place] [address] * Tissue Transglutaminase Antibody, IgA (07/28/2025 10:37 AM EST) [facility] Tissue Transglutaminase Ab, IgA, S <1.2 <4.0 (Negative ) U/mL 08/01/2025 1:58 PM EST [facility] Blood (Blood) Venipuncture / Unknown 07/28/2025 10:37 AM EST 07/28/2025 10:37 AM EST us Les Wilson MD LAB BLOOD BKR ORDERABLES Fin al Result RODRÍGUEZ (BEAKER) [facility] [place] [id number] [place] [address], [facility] [phone] * Lipase (07/28/2025 10:37 AM EST) Pathologist [facility] Lipase 35 13 - 60 U/L 07/28/2025 4:54 PM [facility] Blood (Blood) Venipuncture / Unknown 07/28/2025 10:37 AM EST 07/28/2025 10:37 AM EST Les Wilson MD LAB BLOOD BKR ORDERABLES Fin al Result Performing Organization Address City/[facility]/ZIP Co de Phone Number [address] [address] * Ferritin (07/28/2025 10:37 AM EST) Ferritin 52 30 - 150 ug/L 07/28/2025 4:54 PM [facility] Comment:The lower limit of t he reference range has been increased to 30 ug/L for all adults to reflect a physiologically sufficient level. See Document Link for additional information. Blood (Blood) Venipuncture / Unknown 07/28/2025 10:37 AM EST 07/28/2025 10:37 AM EST Les Wilson MD LAB BLOOD BKR ORDERABLES Fin al Result Performing Organization Address [facility] Co de Phone Number [address] [address] * Vitamin B12 (07/28/2025 10:37 AM EST) Vitamin B12 530 232 - 1,245 pg/mL 07/28/2025 5:08 PM [facility] Blood (Blood) Venipuncture / Unknown 07/28/2025 10:37 AM EST 07/28/2025 10:37 AM EST Les Wilson MD LAB BLOOD BKR ORDERABLES Fin al Result Performing Organization Address City/[facility]/ZIP Co de Phone Number [address] [address] * ENDOSCOPY, COLON (12/01/2022 1:19 PM EDT) Narrative Transcriptions Les Wilson MD - 12/01/2022 1:19 PM EDT [facility] Patient Name: Shikha Magnus Attending MD:: ELS WILSON MD, Procedure Date: 12/01/2022 1:19 PM Date of : 1980 Age: 42 Admit Type: Outpatient Gender: Female Room: [place] [address] Referring MD: Gustabo Sanchez Exam Type: Colonoscopy Indications: Abdominal pain in the left lower quadrant,Hematochezia Medications: Monitored Anesthesia Care Procedure: Informed consent was obtained from the patientafter discussion of the indications, limitations, alternatives, benefits, and risks of the procedure. Risks specifically discussed include but are not limited to medication reactions, missed lesions, bleeding, perforation, or the need for emergent surgery. Throughout the procedure, the patient's blood pressure, pulse, end-tidal CO2, and oxygensaturations were monitored continuously. The Olympus adult variable colonoscope [id number] #5 was introduced through the anus and advanced to the terminal ileum. The colonoscopy was performedwithout difficulty. The patient tolerated the procedurewell. The quality of the bowel preparation was good. The terminal ileum, ileocecal valve, appendicealorifice, and rectum were photographed. Complications: No immediate complications. Estimated blood loss:None. Findings: The perianal and digital rectal examinations were normal. 2 plus internal hemorrhoids were noted. The rectum, recto-sigmoid colon, sigmoid colon, descending colon, splenic flexure, transversecolon, hepatic flexure, ascending colon, cecum,appendiceal orifice, ileocecal valve, ileum, rectum (on retroflexion) and ascending colon (on retroflexion) appeared normal. Biopsies were taken with a cold forceps for histology. Impression: - The rectum (on retroflexion), ascending colon (on retroflexion), rectum, sigmoid colon, descending colon, splenic flexure, transverse colon, hepatic flexure, ascending colon, cecum, recto-sigmoidcolon, ileocecal valve, appendiceal orifice and terminal ileum are normal. Biopsied. Recommendation: - Discharge patient to home. - Resume previous diet. - Continue present medications. - Await pathology results. - Repeat colonoscopy in 10 years for screening purposes. - I will send you pathology results by letter. Ifyou do not get results in 3 weeks telephone myoffice. - A low FODMAP diet is recomended. - Return to my office as previously scheduled. - Any red blood you see associated with bowel movements is due to your internal hemorrhoids. LES WILSON MD 12/01/2022 1:50:36 PM This report has been signed electronically. Number of Addenda: 0 Note Initiated On: 12/01/2022 1:19 PM Procedure Code(s): --- Professional --- 06218, Colonoscopy, flexible; with biopsy, single or multiple --- Technical --- 30005, Colonoscopy, flexible; with biopsy, single or multiple Diagnosis Code(s): --- Professional --- R10.32, Left lower quadrant pain K92.1, Melena (includes Hematochezia) --- Technical --- R10.32, Left lower quadrant pain K92.1, Melena (includes Hematochezia) CPT copyright 2021 [employer]. All rights reserved. The codes documented in this report are preliminary and upon vendor quality supervisor reviewmay be revised to meet current compliance requirements. Procedure Date: 12/01/2022 1:19:14 PM [address] [place] [address] us Gustabo LERMA GI PROCEDURE ORDERABLES Mirna l Result from Last 3 Months or Most Recently Relevant to Health Maintenance Insurance [address] [place], [place] [id number] [facility] [employer] Care Teams Exercise Instructor Relationship Specialty Start Date End Date Gustabo Sanchez PA [address] [place] [address] PCP - General Physician Sky [facility] Yarder 12/01/22 Additional Source Comments The information contained in this document represents components of the legal health record. It is not the complete legal health record.[facility]
== END 2025-08-17 15:07 | disposition home or self-care (01) ==
LOC: HO.HGS 13:55
PROVIDERS: PCP Physician Assistant; Visit Provider Surgery
DX: K42.9 Umbilical hernia without obstruction or gangrene (principal)
CPT/HCPCS: 99204

== ENCOUNTER 2025-09-02 10:04 | Day surgery (SDC) | payer OTHER, SELFPAY ==
--- OUTSIDE RECORDS SUMMARY | 2025-08-17 23:59 | XMS_ITS | Continuity of Care Document ---
Author Organization [facility] Address [address] [place] [address]- Care Team Providers Care Cinder Block Maker Name Role Phone Laura LERMA, Gustabo P Primary Care Physician Encounter [facility] Date(s): 08/10/25 - 08/17/25 [facility] [address] [place], [place] [address] Attending Physician: Cedric Kim MD Referring Physician: Jose Alejandro HIGHTOWER, Sera Lawrence Encounter Type: Office Visit Allergies, Adverse Reactions, Alerts Substance Criticality Severity [...] n 1Result Comment: [06/08/2015] Marcel 2Result Comment: [facility] [id number] 3Result Comment: [facility] [id number] 4Result Comment: [facility] [id number] 5Result Comment: [facility] [id number]./PAL Medications ALPRAZolam 1 mg oral tablet 1 [...] 8-20 cm H2O with compliance data followed .,05/26/20 1:06:00 PM EDT, Supply Start Date: 05/26/20 [...] Total Allowed Fills: 1 Fills Dispensed: 0 Macrobid macrocrystals-monohydrate 100 mg oral capsule 1 capsule = 100 mg, By Mouth, 2 times a day, for 5 days, # 10 capsule, 0 Refills, Acute 12/20/25 11:43:00 AM EST, 08/17/25 11:43:00 AM EST, Capsule, [id number], Partial fill upon patient request if the prescription is for a schedule II opioid drug., 163, cm, 08/13/25 9:09:00 EST, Height, 108, kg, 08/13/25 9:09:00 EST, Dry Weight Start Date: 08/17/25 Stop Date: 08/22/25 Status: Ordered Medication Dispense Status: Completed Quantity: 10.0 Unit: capsule Total Allowed Fills: 1 Fills Dispensed: 0 Magnesium Citrate By Mouth, Daily, 0 Refills, Maintenance, 08/14/25 10:42:00 AM EST, Partial fill upon patient request if the prescription is for a schedule II opioid drug. Start Date: 08/14/25 Status: Ordered Medication Dispense Status: Completed Total Allowed Fills: 1 Fills Dispensed: 0 Melatonin Gummies 5 mg oral tablet, chewable 1 tablet = 5 mg, Chew, Daily at bedtime, # 90 tablet, 0 Refills, Maintenance, 08/14/25 11:02:00 AM EST, Chew Tablet, Partial fill upon patient request if the prescription is for a schedule II opioid drug. Start Date: 08/14/25 Status: Ordered Medication Dispense Status: Completed Quantity: 90.0 Unit: tablet Total Allowed Fills: 1 Fills Dispensed: 0 MiraLax = 17 Gm, By Mouth, Daily, 0 Refills, Maintenance, 08/14/25 11:03:00 AM EST, Partial fill upon patient request if the prescription is for a schedule II opioid drug. Start Date: 08/14/25 Status: Ordered Medication Dispense Status: Completed Total Allowed Fills: 1 Fills Dispensed: 0 [...] Active Shortness of Breath Confirmed 05/24/12 Active Vital Signs Most recent to oldest [Reference Range]: 1 Height 163 cm (08/10/25 2:14 PM) Weight 108 kg (08/10/25 2:14 PM) Oxygen Saturation [94-100 %] 100 % (08/10/25 2:14 PM) Pulse Rate [55-90 bpm] 71 bpm (08/10/25 2:14 PM) Body Mass Index [18.5-24.99 kg/m2] 40.65 kg/m2 *H* (08/10/25 2:14 PM) Blood Pressure [90-138/55-84 mm Hg] 120/ 80mm Hg (08/10/25 2:14 PM) Respiratory Rate [16-30 br/min] 16 br/mi n (08/10/25 2:14 PM) Mode of Delivery (Oxygen) Room air (08/10/25 2:14 PM) Blood pressure sites Arm, right (08/10/25 2:14 PM) Weight Obtained Via Standing scale (08/10/25 2:14 PM) Social History Social History Type Response Sexual [...] Team Personnel Name: Va Davila MA Position: [facility] Staff Member Role: Primary Care Nurse Name: Gustabo Atwood Position: [facility]O Associate Professional Member Role: PCP Address: [address] [place] [phone] [place] Telecom: Care Team Related Persons Name: JIM BAINS Name: SERA MENDEZ Name: ZHENG MENDEZ Name: ELLIOTT SINGH Insurance Providers Guarantor name: RAI BAINS Health Plan Information #: 1 Payer: [id number] Payer Identifier: NA Member Number: [id number] Group Number: [id number] Subscriber Identifier: [id number] Relationship to Subscriber: spouse Coverage Type: PRIVATE HEALTH INSURANCE Coverage Verification Date: Telecom: NA Address: NA
--- OUTSIDE RECORDS SUMMARY | 2025-08-18 23:59 | XMS_ITS | Continuity of Care Document ---
Author Organization [facility] Address [address] [place] [address]- Care Team Providers Care Food Production Machine Operator Name Role Phone Gustabo Atwood Primary Care Physician Encounter [facility] [phone] Date(s): 08/11/25 - 08/18/25 [facility] [address] [id number] Attending Physician: Lester Bird MD Admitting Physician: Lester Bird MD Referring Physician: Gustabo Atwood Encounter Type: Office Visit Allergies, Adverse Reactions, [...] n 1Result Comment: [06/08/2015] Marcel 2Result Comment: [facility] [id number] 3Result Comment: [facility] [id number] 4Result Comment: [facility] [id number] 5Result Comment: [facility] [id number]./PAL Medications ALPRAZolam 1 mg oral tablet 1 [...] 8-20 cm H2O with compliance data followed ,05/26/20 1:06:00 PM EDT, Supply Start Date: 05/26/20 [...] days, # 10 capsule, 0 Refills, Acute 08/22/25 11:43:00 AM EST, 08/17/25 11:43:00 AM EST, Capsule, [facility]/pharmacy #[id number], Partial fill upon patient request if [...] Refills, Maintenance, 02/05/25 1:26:00 PM EDT, ECCapsule, [facility]/pharmacy #[id number], Partial fill upon patient request if [...] Team Personnel Name: Va Davila [place] Position: [facility] Office Staff Member Role: Primary Care Nurse Name: Gustabo Atwood Position: [facility] PCO Associate Professional Member Role: PCP Address: [address] [place] [id number] Telecom: Care Team Related Persons Name: JIM BAINS Name: SERA MENDEZ Name: ZHENG MENDEZ Name: ELLIOTT SINGH Insurance Providers Guarantor name: RAI NARA Health Plan Information #: 1 Payer: U[employer] [id number] Payer Identifier: NA Member Number: [id number] Group Number: [id number] Subscriber Identifier: [id number] Relationship to Subscriber: spouse Coverage Type: PRIVATE HEALTH INSURANCE Coverage Verification Date: Telecom: NA Address:
--- OUTSIDE RECORDS SUMMARY | 2025-08-19 19:54 | XMS_ITS | Encounter Summary ---
Author Organization [facility] Address [address] [place] [address] Phone Care Team Providers Care Warp Preparer Name Role Phone Gustabo Sanchez Primary Care Provider + [phone] Encounter Details Date Type Department Care Team (Late st Contact Info) Description 12/01/2022 Procedure Pass [facility] Endoscopy Admitting Dept Virtual Department [address] [place] [address] Social History Tobacco Use Types Packs/Day Years [...] [facility] Endoscopy Admitting Dept Virtual Department [address] [place] [address] 11/27/2025 9:00 AM EDT Hospital Encounter [facility] Endoscopy Admitting Dept Virtual Department [address] [place] [address] Les Garcia MD [address] [address] juan [email or web address] 11/27/2025 9:00 AM EDT - 11/27/2025 9:30 AM EDT Surgery [facility] Endoscopy Admitting Dept Virtual Department [address] [place] [address] Les Garcia MD [address] [address] [email or web address] ESOPHAGOGASTRODUODENOSCOPY Scheduled Procedures Name Priority Associated Diagnoses Date/Ti ak ESOPHAGOGASTRODUODENOSCOPY 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 It is not the complete legal health record.[facility]
--- OUTSIDE RECORDS SUMMARY | 2025-08-19 19:54 | XMS_ITS | Encounter Summary ---
Author Organization [facility] Address [address] [place] [address] Phone Care Team Providers Care Automotive Specialty Technician Name Role Phone Gustabo Sanchez Primary Care Provider + [phone] Encounter Details Date Type Department Care Team (Latest Contact Info) Description 12/05/2022 Transcribe Orders Virtual Department [address] [place] [address] Obdulia Mehta PA-C [address], [address] [place] [address] [email or web address] Elevated LFTs (Primary Dx) Social History Tobacco [...] Pass [facility] Endoscopy Admitting Dept Virtual Department [address] [place] [address] 11/27/2025 9:00 AM EDT Hospital Encounter [facility] Endoscopy Admitting Dept Virtual Department [address] [place] [address] Les Garcia MD [address] [address] juan [email or web address] 11/27/2025 9:00 AM EDT - 11/27/2025 9:30 AM EDT Surgery [facility] Endoscopy Admitting Dept Virtual Department [address] [place] [address] Les Garcia MD [address] [place] [address] juan [email or web address] ESOPHAGOGASTRODUODENOSCOPY Scheduled Procedures Name Priority Associated Diagnoses Date/Ti tn ESOPHAGOGASTRODUODENOSCOPY 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 It is not the complete legal health record.[facility]
--- OUTSIDE RECORDS SUMMARY | 2025-08-19 19:54 | XMS_ITS | Clinical Summary ---
Author Organization [facility] Address [address] [place] [address] Phone Care Team Providers Care Divisional Storekeeper Name Role Phone Gustabo Sanchez Primary Care Provider [phone] Allergies Active Allergy Reactions Criticality Noted Date [...] Description 07/28/2025 10:00 AM EST Office Visit [facility] [address] [place] [address] Unknown, Unknown, Les Bhatt MD Mcdonnell's esophagus [...] Pass [facility] Endoscopy Admitting Dept Virtual Department [address] [place] [address] 11/27/2025 9:00 AM EDT Hospital Encounter [facility] Endoscopy Admitting Dept Virtual Department [address] [place] [address] Les Wilson MD [address] [place] [address] juan [email or web address] 11/27/2025 9:00 AM EDT - 11/27/2025 9:30 AM EDT Surgery [facility] Endoscopy Admitting Dept Virtual Department [address] [place] [address] Les Wilson MD [address] [place] [address] juan [email or web address] ESOPHAGOGASTRODUODENOSCOPY Scheduled Procedures Name [...] 136 - 145 mmol/L 07/28/2025 4:54 PM [facility] Potassium 4.3 3.4 - 5.1 mmol/L 07/28/2025 4:54 PM [facility] Chloride 101 98 - 107 mmol/L 07/28/2025 4:54 PM [facility] CO2 24 20 - 31 mmol/L 07/28/2025 4:54 PM [facility] Anion Gap 11 3 - 17 mmol/L 07/28/2025 4:54 PM [facility] BUN 13 6 - 23 mg/dL 07/28/2025 4:54 PM [facility] Creatinine 0.80 0.50 - 1.00 mg/dL 07/28/2025 4:54 PM [facility] eGFR 94 >59 mL/min/1.7 3m2 07/28/2025 4:54 PM [facility] Comment:Estimated glomerular filtration rate calculated using the CKD-EPI refit equation. Glucose 97 70 - 99 mg/dL 07/28/2025 4:54 PM [facility] Calcium 9.5 8.5 - 10.5 mg/dL 07/28/2025 4:54 PM [facility] AST 36(H) <33 U/L 07/28/2025 4:54 PM [facility] ALT 43(H) <34 U/L 07/28/2025 4:54 PM [facility] Alkaline Phosphatase 89 40 - 130 U/L 07/28/2025 4:54 PM [facility] Bilirubin, Total 0.4 0.0 - 1.2 mg/dL 07/28/2025 4:54 PM [facility] Total Protein 7.4 6.4 - 8.3 g/dL 07/28/2025 4:54 PM [facility] Albumin 4.4 3.5 - 5.2 g/dL 07/28/2025 4:54 PM [facility] Globulin 3.0 1.9 - 4.1 g/dL 07/28/2025 4:54 PM [facility] Blood (Blood) Venipuncture / Unknown 07/28/2025 10:37 AM EST 07/28/2025 10:37 AM EST us Les Wilson MD LAB BLOOD BKR ORDERABLES Fin al Result [facility] [address] [place] [address] * (ABNORMAL) CBC and Differential (07/28/2025 10:37 AM EST) WBC 4.47 4.00 - 11.00 K/uL 07/28/2025 3:32 PM [facility] RBC 4.51 4.00 - 5.20 M/uL 07/28/2025 3:32 PM [facility] Hemoglobin 11.7(L) 12.0 - 16.0 g/dL 07/28/2025 3:32 PM [facility] Hematocrit 37.1 36.0 - 46.0 % 07/28/2025 3:32 PM [facility] MCV 82.3 80.0 - 100.0 fL 07/28/2025 3:32 PM [facility] MCH 25.9(L) 27.0 - 31.0 pg 07/28/2025 3:32 PM [facility] MCHC 31.5(L) 32.0 - 36.0 g/dL 07/28/2025 3:32 PM [facility] MPV 9.8 8.4 - 12.0 fL 07/28/2025 3:32 PM [facility] RDW-CV 14.6(H) 11.5 - 14.5 % 07/28/2025 3:32 PM [facility] PLT 358 150 - 450 K/uL 07/28/2025 3:32 PM [facility] Neutrophils 53.4 % 07/28/2025 3:32 PM [facility] Lymphocytes 33.3 % 07/28/2025 3:32 PM [facility] Monocytes 10.7 % 07/28/2025 3:32 PM [facility] Eosinophils 1.3 % 07/28/2025 3:32 PM [facility] Basophils 1.1 % 07/28/2025 3:32 PM [facility] Imm Grans 0.2 % 07/28/2025 3:32 PM [facility] NRBC 0.0 <=0.0 /100 WBCs 07/28/2025 3:32 PM [facility] Absolute Neutrophils 2.38 1.92 - 7.60 K/uL 07/28/2025 3:32 PM [facility] Absolute Lymphocytes 1.49 0.72 - 4.10 K/uL 07/28/2025 3:32 PM [facility] Absolute Monocytes 0.48 0.16 - 1.10 K/uL 07/28/2025 3:32 PM [facility] Absolute Eosinophils 0.06 0.00 - 0.50 K/uL 07/28/2025 3:32 PM [facility] Absolute Basophils 0.05 0.00 - 0.15 K/uL 07/28/2025 3:32 PM [facility] Absolute Imm Grans 0.01 0.00 - 0.09 K/uL 07/28/2025 3:32 PM [facility] Absolute NRBC 0.00 <=0.00 K cells/uL 07/28/2025 3:32 PM [facility] Absolute Neutrophils 2.38 1.92 - 7.60 K/uL 07/28/2025 3:32 PM [facility] Comment:Automated cell count . Manual ANC may differ if performed. Diff Type Auto 07/28/2025 3:32 PM [facility] Blood (Blood) Venipuncture / Unknown 07/28/2025 10:37 AM EST 07/28/2025 10:37 AM EST us Les Wilson MD LAB BLOOD BKR ORDERABLES Fin al Result [address] [id number] * Celiac Disease Panel (07/28/2025 10:37 AM EST) Immunoglobulin A (IgA), S 226 61 - 356 mg/dL 08/03/2025 10:41 PM EST [facility] Celiac Disease Interpretation SEE COMMENTS 08/03/2025 10:41 PM EST [facility] Comment: See Comment: Negative serology. Celiac disease [...] BKR ORDERABLES Fin al Result RODRÍGUEZ (BEAKER) [facility] [address] [place] [address], [facility] [phone] * (ABNORMAL) Iron and Total Iron Binding Capacity (Iron/TIBC) (07/28/2025 10:37 AM EST) Pathologist [facility] Iron 45 28 - 170 ug/dL 07/28/2025 4:54 PM EST [facility] Total Iron-Binding Capacity (TIBC) 367 220 - 460 ug/dL 07/28/2025 4:54 PM [facility] Transferrin Saturation 12(L) 14 - 50 % 07/28/2025 4:54 PM [facility] Blood (Blood) Venipuncture / Unknown 07/28/2025 10:37 AM EST 07/28/2025 10:37 AM EST Les Wilson MD LAB BLOOD BKR ORDERABLES [place] [address] * Tissue Transglutaminase Antibody, IgA (07/28/2025 10:37 AM EST) [facility] Tissue Transglutaminase Ab, IgA, S <1.2 <4.0 (Negative ) U/mL 08/01/2025 1:58 PM EST [facility] Blood (Blood) Venipuncture / Unknown 07/28/2025 10:37 AM EST 07/28/2025 10:37 AM EST us Les Wilson MD LAB BLOOD BKR ORDERABLES Fin al Result RODRÍGUEZ (BEAKER) [facility] [place] [id number] [place] [address], [facility] [phone] * Lipase (07/28/2025 10:37 AM EST) Pathologist [facility] Lipase 35 13 - 60 U/L 07/28/2025 4:54 PM [facility] Blood (Blood) Venipuncture / Unknown 07/28/2025 10:37 AM EST 07/28/2025 10:37 AM EST Les Wilson MD LAB BLOOD BKR ORDERABLES Fin al Result Performing Organization Address City/[facility]/ZIP Co de Phone Number [address] [address] * Ferritin (07/28/2025 10:37 AM EST) Ferritin 52 30 - 150 ug/L 07/28/2025 4:54 PM [facility] Comment:The lower limit of t he reference range has been increased to 30 ug/L for all adults to reflect a physiologically sufficient level. See Document Link for additional information. Blood (Blood) Venipuncture / Unknown 07/28/2025 10:37 AM EST 07/28/2025 10:37 AM EST Les Wilson MD LAB BLOOD BKR ORDERABLES Fin al Result Performing Organization Address [facility] Co de Phone Number [address] [address] * Vitamin B12 (07/28/2025 10:37 AM EST) Vitamin B12 530 232 - 1,245 pg/mL 07/28/2025 5:08 PM [facility] Blood (Blood) Venipuncture / Unknown 07/28/2025 10:37 AM EST 07/28/2025 10:37 AM EST Les Wilson MD LAB BLOOD BKR ORDERABLES Fin al Result Performing Organization Address City/[facility]/ZIP Co de Phone Number [address] [address] * ENDOSCOPY, COLON (12/01/2022 1:19 PM EDT) Narrative Transcriptions Les Wilson MD - 12/01/2022 1:19 PM EDT [facility] Patient Name: Shikha Magnus Attending MD:: LES WILSON MD, Procedure Date: 12/01/2022 1:19 PM Date of : 1980 Age: 42 Admit Type: Outpatient Gender: Female Room: [place] [address] Referring MD: Gustabo Sanchez Exam Type: Colonoscopy [...] monitored continuously. The Olympus adult variable colonoscope [id number] #5 was introduced through the anus and [...] 1:19 PM Procedure Code(s): --- Professional --- 42425, Colonoscopy, flexible; with biopsy, single or multiple --- Technical --- 46187, Colonoscopy, flexible; with biopsy, single or multiple Diagnosis Code(s): --- Professional --- R10.32, Left lower quadrant pain K92.1, Melena (includes Hematochezia) --- Technical --- R10.32, Left lower quadrant pain K92.1, Melena (includes Hematochezia) CPT copyright 2021 [employer]. All rights reserved. The codes documented in this report are preliminary and upon e learning designer reviewmay be revised to meet current compliance requirements. Procedure Date: 12/01/2022 1:19:14 PM [address] [place] [address] us Gustabo LERMA GI PROCEDURE ORDERABLES Mirna l Result from Last 3 Months or Most Recently Relevant to Health Maintenance Insurance [address] [place], [place] [id number] [facility] [employer] Care Teams Divisional Storekeeper Relationship Specialty Start Date End Date Gustabo Sanchez PA [address] [place] [address] PCP - General Physician Assistant Merchandiser 12/01/22 Additional Source Comments The information contained in this document represents components of the legal health record. It is not the complete legal health record.[facility]
--- OUTSIDE RECORDS SUMMARY | 2025-08-19 19:54 | XMS_ITS | Encounter Summary ---
Author Organization [facility] Address [address] [place] [address] Phone Care Team Providers Care Mobile Home Set Up Person Name Role Phone Pcp, Unknown Primary Care Provider Gustabo Martin Primary Care Provider Encounter Details Date Type Department Care Team (Late st Contact Info) Description 08/14/2019 Telephone [facility] Obstetrics and Gynecology Clinic [address] [place] [address] Jonny Miramontes MD [address] [place] [address] Social History Tobacco Use Types Packs/Day Years [...] [facility] Endoscopy Admitting Dept Virtual Department [address] [place] [address] 11/27/2025 9:00 AM EDT Hospital Encounter [facility] Endoscopy Admitting Dept Virtual Department [address] [place] [address] Les Garcia MD [address] [address] juan [email or web address] 11/27/2025 9:00 AM EDT - 11/27/2025 9:30 AM EDT Surgery [facility] Endoscopy Admitting Dept Virtual Department [address] [place] [address] Les Garcia MD [address] [place] [address] juan [email or web address] ESOPHAGOGASTRODUODENOSCOPY Scheduled Procedures Name Priority Associated Diagnoses Date/Ti id ESOPHAGOGASTRODUODENOSCOPY 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 It is not the complete legal health record.[facility]
--- OUTSIDE RECORDS SUMMARY | 2025-08-19 19:55 | XMS_ITS | Clinical Summary ---
Author Organization [facility] [address] [facility] [address] Address [address] [place] [address] Phone Care Team Providers Care Online Marketing Director Name Role Phone Gustabo Sanchez Primary Care Provider [phone] Allergies Active Allergy Reactions Criticality Noted Date [...] PM EST Office Visit Obstetrics [facility] Gynecology - [place] [address] [place] [address] Ana Salamanca, CNM [address] [place] [address] Health Maintenance Due Date Last Done Comments Breast Cancer Screening 1980 Drug Screen 1980 Non-Opioid Controlled Substa nce Agreement 1980 DTaP,Tdap,and Td Vaccines (1 - Tdap) [...] Most Recently Relevant to Health Maintenance Insurance [facility] MIRIAM LOPEZ [id number] Care Teams Online Marketing Director Relationship Specialty Start Date End Date Gustabo Sanchez PA PCP - General 06/27/22
--- NOTE | 2025-08-26 11:08 | HO.ANESPROP2 ---
Documented by User: Radha Lundberg NP 08/26/25 11:11 HPI - Anesthesia Eval Consult details Narrative: 45yo F for Repair Hernia Umbilical Reducible with mesh Medically optimized per [facility] clinic ( Mild SLE - on plaquinel) BMI 42.4 PMFSH Active Problems Active Problems: All Active Problems Umbilical hernia (Acute) SLE (systemic lupus erythematosus) (Acute) Long-term use of hydroxychloroquine (Acute) Past Medical History Medical History Anxiety Rosacea Acute cutaneous lupus erythematosus Family History Family History Maternal Grandfather Acute arthritis Hypertension Maternal Grandmother Uterine cancer Pernicious anemia Family/Other Stomach cancer Hodgkin lymphoma Lung cancer Brain cancer Social History Social History Household Members: Spouse and Children Alcohol intake: never Patient Tobacco Use Status: Never used Tobacco Current occupational status: employed 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 Meds Allergies Allergy/AdvReac Type Severity Reaction Status Date / Time acetaminophen (From Percocet) AdvReac Intermediate Nausea and Verified 08/17/25 14:13 Vomiting oxycodone (From Percocet) AdvReac Intermediate Nausea and Verified 08/17/25 14:13 Vomiting Home Medications ?Medication ?Instructions ?Recorded ?Confirmed ?Last Taken ?Type alprazolam 1 mg tablet 1 mg PO BID PRN Anxiety 10/10/22 08/31/25 Unknown History omeprazole 20 mg capsule,delayed 20 mg PO DAILY 05/03/23 08/31/25 Unknown History release Exam Pertinent Lab Results Pertinent Lab Results: Narrative Narrative: Chest and Abd CT 07/2025 IMPRESSION: CHEST 1. No significant pulmonary, pleural, or mediastinal abnormality, including no lung nodule.. 2. No bony abnormality. ABDOMEN AND PELVIS 1. There is a fat-containing umbilical hernia with the hernia sac 3 cm in diameter. It was present on 11/24/2022 and has increased in size mildly since that time. There is mild edema-like change in the fat within the hernia sac.. 2. No other soft tissue abnormality seen. 3. No fracture. Assessment and Plan Assessment Anesthesia Assessment: Chart Reviewed Documented by User: Mirta Yip MD 09/02/25 09:48 PMFSH Past Medical History Medical History Anxiety Rosacea Acute cutaneous lupus erythematosus Family History Family History Maternal Grandfather Acute arthritis Hypertension Maternal Grandmother Uterine cancer Pernicious anemia Family/Other Stomach cancer Hodgkin lymphoma Lung cancer Brain cancer Family history of problems with anesthesia: No Surgical History History of Problems with Anesthesia: No Social History Social History Household Members: Spouse and Children Alcohol intake: never Patient Tobacco Use Status: Never used Tobacco Current occupational status: employed 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 Meds Allergies Allergy/AdvReac Type Severity Reaction Status Date / Time acetaminophen (From Percocet) AdvReac Intermediate Nausea and Verified 08/17/25 14:13 Vomiting oxycodone (From Percocet) AdvReac Intermediate Nausea and Verified 08/17/25 14:13 Vomiting Home Medications ?Medication ?Instructions ?Recorded ?Confirmed ?Last Taken ?Type alprazolam 1 mg tablet 1 mg PO BID PRN Anxiety 10/10/22 08/31/25 Unknown History omeprazole 20 mg capsule,delayed 20 mg PO DAILY 05/03/23 08/31/25 Unknown History release Exam Airway Mallampati Class: III TM Dist: >3cm Neck ROM: Full Heart: rrr Lungs: cta Assessment and Plan Assessment Anesthesia Assessment: Anesthesia Plan Discussed Final Anesthetic Review Family History of Problems with Anesthesia: No History of Problems with Anesthesia: No NPO: Yes ASA Class: III Final Preanesthetic Review: No Changes in Pt Med Stat, Meds/Allgs Chart Reviewed, Consent Obtained/Reviewed and Anes Risks/Benef Reviewed Patient Risk: Intermediate Procedure Risk: Intermediate Anesthetic Plan Anesthetic Plan: GA and Agree w/ Assess. and Plan Disposition: Standard PACU
[2025-08-31 08:19] VITALS: BMI 42.4
[2025-09-02 10:26] VITALS: BMI 41.2
[2025-09-02 10:33] VITALS: BP 129/77; PULSE 103; RESP 16; TEMP 37.1; O2SAT 96
[2025-09-02 10:35] LABS: UPreg QC Valid YES
[2025-09-02] MEDS: Lactated Ringers 1,000 ML 100 ML IVCONT (10:55)
--- NOTE | 2025-09-02 10:59 | MHC.SHP ---
Pre-Procedural Eval Section A - 24 Hr Update-Section A only Date of Service: 09/02/25 The patient is an INPATIENT: No Changes since office visit: Yes Patient answered all questions; No Cold of Flu in the past 2 weeks, No New Medical Problems and No Changes in Medication The patient has been examined within 24 hours of the surgical procedure. The History & Physical has been completed within 30 days and I have reviewed it.: Yes Section B - Complete if H&P > 30 days Chief Complaint: Umbilical hernia without obstruction or gangrene Allergies: Allergies Allergy/AdvReac Type Severity Reaction Status Date / Time oxycodone (From Percocet) AdvReac Intermediate Nausea and Verified 09/02/25 10:24 Vomiting Plan Diagnosis/Plan: Unchanged I have reviewed the history and physical and performed a pertinent physical examination on my patient. No changes have occurred unless specified. Time Spent With Patient Time: Total time managing care of this patient today ____ minutes.
--- NOTE | 2025-09-02 11:45 | P.OP_ITS ---
Operative Note Operative Note Date of Service: 09/02/25 Narrative: Preoperative diagnosis: Reducible umbilical hernia, 2 cm diameter Postoperative diagnosis: Same Procedure:repair of reducible umbilical hernia with mesh Surgeon: Juventino Murguia MD [facility] Teacher: Bernadette Jiménez PA-C Anesthesia: MAC Indications for procedure: 45-year-old female patient with sleep apnea and obesity presenting with a symptomatic umbilical hernia. Patient presents for repair of the umbilical hernia. Operative findings: 2 cm umbilical hernia, reducible Specimen: None Estimated blood loss: 2 mL Complications: None Procedure details: Patient was brought to the OR and placed in a supine position. After administering general anesthesia the patient's abdomen was prepped with ChloraPrep and draped in a sterile fashion. A surgical time-out was called the consent confirmed. Patient received preoperative antibiotics and Venodyne boots were in place. Local anesthesia was then infiltrated around the umbilicus. A curvilinear incision was made in a transverse fashion over the top of the umbilicus. This was carried out through subcutaneous tissue up to the hernia sac. The hernia sac was then dissected circumferentially down to the fascial defect. The sac was then reduced into the abdominal cavity. A preperitoneal space was then created below the fascia. A 4.3 cm round Ventralex mesh was then obtained. The mesh was deployed within the preperitoneal space and secured in 4 quadrants using a 1 Tycron suture. Fascia was then closed over the mesh bringing the mesh in the closure using [id number] 1 Tycron sutures. Prior to complete closure of the fascia approximately 8 mL of Zenrelef was instilled below the fascia for postoperative pain control. Fascia was then closed with a 1 Tycron suture. Dermis was then reapproximated using interrupted 3-0 Polysorb sutures. Skin was closed using a running subcuticular 4-0 Polysorb suture. Sterile dressings consisting of Steri-Strips, 2 x 2 and Tegaderm were then applied. The patient tolerated the procedure well. Sponge, instrument, and needle counts reported as correct. The patient was transferred to PACU in stable condition.
[2025-09-02 11:55] VITALS: BP 98/61; PULSE 72; RESP 18; TEMP 36.6; O2SAT 93
[2025-09-02 12:00] VITALS: BP 95/50; PULSE 75; RESP 18; O2SAT 95
[2025-09-02 12:05] VITALS: BP 101/55; PULSE 75; RESP 18; O2SAT 96
[2025-09-02 12:10] VITALS: BP 103/64; PULSE 76; RESP 18; O2SAT 96
== END 2025-09-02 12:46 | disposition home or self-care (01) ==
PROVIDERS: Nurse Practitioner; PCP Physician Assistant; Visit Provider Surgery
PROC: (CPT 49591; principal; 2025-09-02 11:40)
DX: K42.9 Umbilical hernia without obstruction or gangrene (principal); K58.9 Irritable bowel syndrome, unspecified; K22.70 Barrett's esophagus without dysplasia; L93.1 Subacute cutaneous lupus erythematosus; L71.9 Rosacea, unspecified; G47.33 Obstructive sleep apnea (adult) (pediatric); E66.01 Morbid (severe) obesity due to excess calories; F41.9 Anxiety disorder, unspecified; Z99.89 Dependence on other enabling machines and devices; Z79.899 Other long term (current) drug therapy; Z88.5 Allergy status to narcotic agent
CPT/HCPCS: 49591; 81025; C1781; J0668; J0690; J1100; J2003; J2250; J2405; J2704; J3010

== ENCOUNTER → 2025-09-02 10:04 | Outpatient (BNV) | payer OTHER, SELFPAY | PROVIDERS: PCP Physician Assistant; Visit Provider Surgery | DX: K42.9 Umbilical hernia without obstruction or gangrene (principal) | CPT/HCPCS: 49591 ==